=== PATIENT | female | born 1940 | race Caucasian/White ===

== ENCOUNTER 2016-12-25 10:02 | Inpatient (IN) | payer OTHER, MEDICARE ==
[2017-01-07] MEDS ORDERED: ASPI-110 PO (11:43)
[2017-01-07] MEDS ORDERED: MAPA500T13 PO (11:43)
[2017-01-11] MEDS ORDERED: VANCOMYCIN 1000 MG/NS 250 ML (for <70 kg) IV SCH ×2 (06:00)
[2017-01-11] MEDS ORDERED: DEXAMETHASONE SOD PHOS 20 MG/5 ML VIAL IV SCH (06:00)
[2017-01-11] MEDS ORDERED: LACTATED RINGER'S 1000 ML IV PRN (06:00)
[2017-01-11] MEDS ORDERED: ceFAZolin 2 GM PREMIX 50 ML IV SCH (06:00)
[2017-01-11] MEDS ORDERED: POVIDONE IODINE 7.5% SCRUB 118 ML BOTTLE TOPICAL SCH (06:00)
[2017-01-11] MEDS ORDERED: INSULIN HUMAN REGULAR 1,000 UNITS/10 ML VIAL SQ PRN (06:00)
[2017-01-11] MEDS ORDERED: CHLORHEXIDINE GLUCONATE 2 % 1 PACK (2 CLOTHS) TOPICAL PRN (06:00)
[2017-01-11] MEDS ORDERED: METOPROLOL TARTRATE 25 MG TAB PO PRN (06:00)
[2017-01-11] MEDS ORDERED: POVIDONE IODINE 5% (ANTISEPSIS KIT) 4 APPLICATIONS EACH NARE PRN (06:00)
[2017-01-11] MEDS ORDERED: CHLORHEXIDINE GLUCONATE 4% SOLN 120 ML BTL TOPICAL SCH (06:00)
[2017-01-11] MEDS ORDERED: SODIUM CHLORID 0.9% 500 ML IV PRN (06:00)
[2017-01-11 06:01] VITALS: BP 189/92; PULSE 78; RESP 18; TEMP 97.7; O2SAT 97
[2017-01-11] MEDS ORDERED: GENTAMICIN SULFATE 80 MG/2 ML VIAL ONE (06:16)
[2017-01-11] MEDS ORDERED: FAMOTIDINE 20 MG/2 ML VIAL ONE (06:36)
[2017-01-11] MEDS ORDERED: MIDAZOLAM HCL 2 MG/2 ML VIAL ONE (06:37)
[2017-01-11] MEDS ORDERED: HYDR-3288 PO (06:43)
[2017-01-11] MEDS ORDERED: ENOX40P SQ (06:43)
[2017-01-11] MEDS ORDERED: ASPI81CH37 CHEW (06:44)
[2017-01-11] MEDS ORDERED: ALUMINUM/MAGNESIUM/SIMETH 30 ML CUP PO PRN (06:45)
[2017-01-11] MEDS ORDERED: ONDANSETRON HCL 4 MG/2 ML VIAL IVP PRN (06:45)
[2017-01-11] MEDS ORDERED: Post-op Orders (for Pharmacy) MISC XX ONE (06:45)
[2017-01-11] MEDS ORDERED: diphenhydrAMINE HCL 50 MG/ML VIAL IV PRN (06:45)
[2017-01-11] MEDS ORDERED: BISACODYL 10 MG SUPP RECTAL PRN (06:45)
[2017-01-11] MEDS ORDERED: NALOXONE HCL 0.4 MG/ML AMP IV PRN (06:45)
[2017-01-11] MEDS ORDERED: MORPHINE SULFATE 4 MG/ML INJ IV PUSH PRN (06:45)
[2017-01-11] MEDS ORDERED: ZOLPIDEM TARTRATE 5 MG TAB PO PRN (06:45)
[2017-01-11] MEDS ORDERED: SODIUM CHLORIDE 0.9% FLUSH 5 ML FLUSH IVF PRN (06:45)
[2017-01-11] MEDS ORDERED: SODIUM CHLORIDE 0.9% IV SCH (07:00)
[2017-01-11] MEDS ORDERED: TRANEXAMIC ACID IV SCH (07:00)
[2017-01-11] MEDS ORDERED: EXPAREL PERI-ARTICULAR INJECTION (TOTAL VOL. 60 ML) P-ARTICULR SCH ×2 (07:00)
[2017-01-11] MEDS ORDERED: TRANEXAMIC PERI-ARTICULAR 3,000 MG/NS 100 ML P-ARTICULR SCH ×2 (07:00)
[2017-01-11] MEDS ORDERED: DO NOT ADM ANY ANTICOAGULANT DRUGS PRN (09:10)
[2017-01-11] MEDS: SODIUM CHLORIDE 0.9% FLUSH 5 ML FLUSH IVF SCH ×2 (09:12→20:42)
[2017-01-11] MEDS ORDERED: fentaNYL CITRATE 250 MCG/5 ML AMP ONE (09:21)
[2017-01-11] MEDS ORDERED: *ONDANSETRON 4 MG VIAL PERIprocedural Use ONLY ONE (09:45)
[2017-01-11] MEDS: SODIUM CHLOR 0.9% 1000 ML INJ 1,000 ML IV SCH ×3 (09:45→20:42)
[2017-01-11] MEDS ORDERED: *morphine SULFATE 8 MG/ML PERIprocedure ONLY ONE (09:45)
--- NOTE | 2017-01-11 09:59 | RADRPT ---
EXAM DATE/TIME: 01/11/2017 09:21 [facility] COMPARISON: No previous studies available for comparison. INDICATIONS : Post operative left hip. MEDICAL HISTORY : None. SURGICAL HISTORY : None. ENCOUNTER: Initial ACUITY: 1 day PAIN SCORE: 0/10 LOCATION: Left hip. FINDINGS: There is an arthroplasty in place in the left hip. Orthopedic hardware is in excellent position. The alignment is good. No acute fracture or destructive lesion is seen. CONCLUSION: 1. Orthopedic hardware on the left in excellent position. Esteban Carroll MD on January 11, 2017 at 9:56 Board Certified Radiologist. This report was verified electronically.
[2017-01-11 11:24] VITALS: BP 143/67; PULSE 90; RESP 20; TEMP 97; O2SAT 97
[2017-01-11] MEDS: ACETAMINOPHEN/HYDROcodone 325 MG/7.5 MG TAB PO PRN ×3 (12:07→20:41)
[2017-01-11] MEDS ORDERED: PROPOFOL 200 MG/20 ML AMP IV ONE (12:18)
[2017-01-11] MEDS ORDERED: ePHEDrine/NS 25 MG/5 ML SYR IV ONE (12:19)
[2017-01-11] MEDS ORDERED: NEOSTIGMINE 3 MG/3 ML SYR IV ONE (12:19)
[2017-01-11] MEDS ORDERED: ONDANSETRON HCL 4 MG/2 ML VIAL IV ONE (12:21)
[2017-01-11] MEDS ORDERED: LACTATED RINGER'S 1000 ML INJ 1,000 ML IV ONE (12:22)
--- NOTE | 2017-01-11 13:03 | HHI.FF ---
Face to Face Verification Diagnosis: (1) Primary localized osteoarthrosis, pelvic region and thigh Physical Therapy Gait training, Safety evaluation, Transfer training, bed to chair Hip: Total hip, Protocol: Left, Progress to weight bearing Left LE Weight Bearing: WB as tolerated Nursing RN: 3 days/week x 2 weeks Nursing: Wilver teaching, Dressing changes Dressing Changes: Daily dressing change I have seen patient Franko Nation on 01/11/17. My clinical findings support the need for the requested home health care services because: Limited ability to care for self High risk of falls I certify that my clinical findings support that this patient is homebound because: Post-op weakness Unsteady gait/balance William Cabrera Jan 11, 2017 13:03
--- NOTE | 2017-01-11 13:03 | HHI.DCPOC ---
Discharge Care Plan Diagnosis: (1) Primary localized osteoarthrosis, pelvic region and thigh Your Health Problems Are: Difficulty with ADL Goals to Promote Your Health * To prevent worsening of your condition and complications * To maintain your health at the optimal level Directions to Meet Your Goals Take your medications as prescribed Follow your dietary instruction Follow activity as directed Keep your appointments as scheduled Take your immunizations and boosters as scheduled If your symptoms worsen call your PCP, if no PCP go to Urgent Care Center or Emergency Room Smoking is Dangerous to Your Health. Avoid second hand smoke Call the 24-hour hour crisis hotline for domestic abuse at William Cabrera Jan 11, 2017 13:02
--- NOTE | 2017-01-11 13:12 | PD.CONS ---
HPI Service [facility] Consult Requested By Reason for Consult medical management Primary Care Physician No Primary Care Physician Diagnoses: History of Present Illness patient is a 76 y/o female with history of osteoarthritis who underwent left total hip arthroplasty today. at the time of my evaluation she was resting comfortably with no distress. denies any pain at this time. no chest pain, sob, dizziness or nausea.family at the bedside. Review of Systems Constitutional: DENIES: Fever, Weight loss, Chills, Night Sweats Eyes: DENIES: Blurred vision, Diplopia, Vision loss, Double Vision Ears, nose, mouth, throat: DENIES: Tinnitus, Vertigo, Throat pain, Epistaxis Respiratory: DENIES: Apneas, Cough, Snoring, Wheezing, Hemoptysis, Sputum production, Shortness of breath Cardiovascular: DENIES: Chest pain, Palpitations, Syncope, Dyspnea on Exertion , PND, Lower Extremity Edema, Orthopnea, Claudication Gastrointestinal: DENIES: Abdominal pain, Black stools, Bloody stools, Constipation, Diarrhea, Nausea, Vomiting, Difficulty Swallowing, Anorexia Genitourinary: DENIES: Urinary frequency, Urgency, Hematuria, Dysuria Musculoskeletal: DENIES: Joint pain, Muscle aches, Stiffness, Joint Swelling Integumentary: DENIES: Rash Neurologic: DENIES: Abnormal gait, Headache, Localized weakness, Paresthesias, Seizures, Speech Problems, Tremor, Poor Balance Psychiatric: DENIES: Anxiety, Confusion, Mood changes, Depression, Hallucinations, Agitation, Suicidal Ideation, Homicidal Ideation, Delusions Past Family Social History Allergies: Coded Allergies: No Known Allergies (Verified , 01/07/17) Past Medical History osteoarthritis Past Surgical History tubal ligation eye surgery Reported Medications tylenol Active Ordered Medications Current Medications Lactated Ringer's 1,000 ml @ 30 mls/hr Q24H PRN IV SEE LABEL COMMENTS Last administered on 01/11/17t 06:09; Start 01/11/17 at 06:00; Stop 01/14/17 at 05:59 Sodium Chloride (NS 500 ml Inj) 500 ml @ 30 mls/hr [id number] PRN IV SEE LABEL COMMENTS; Start 01/11/17 at 06:00; Stop 01/14/17 at 05:59 Metoprolol Tartrate (Lopressor) 25 mg LAYER OFF PRN PO SEE LABEL COMMENTS; Start 01/11/17 at 06:00; Stop 01/14/17 at 05:59 Povidone Iodine (Betadine 5% Antisepsis Kit) 1 applic LAYER OFF PRN EACH NARE SEE LABEL COMMENTS Last administered on 01/11/17 06:17; Start 01/11/17 at 06:00 ; Stop 01/14/17 at 05:59 Chlorhexidine Gluconate (Chlorhexidine 2% Cloth) 3 pack LAYER OFF PRN TOPICAL SEE LABEL COMMENTS Last administered on 01/11/17 05:40; Start 01/11/17 at 06:00 ; Stop 01/14/17 at 05:59 Insulin Human Regular (NovoLIN R INJ) See Protocol Table ... LAYER OFF PRN SQ SEE PROTOCOL TABLE; Start 01/11/17 at 06:00; Stop 01/14/17 at 05:59 Povidone Iodine (Betadine 7.5% Scrub) 1 applic ONCE TOPICAL Last administered on 01/11/17 06:08; Start 01/11/17 at 06:00; Stop 01/14/17 at 05:59 Chlorhexidine Gluconate 1 applic 1 applic ONCE TOPICAL ; Start 01/11/17 at 06:00 ; Stop 01/14/17 at 05:59 Cefazolin Sodium/ Dextrose 50 ml @ 100 mls/hr LAYER OFF IV Last administered on 01/11/17 06:16; Start 01/11/17 at 06:00; Stop 01/12/17 at 05:59 Vancomycin HCl 1000 mg/Sodium Chloride 250 ml @ 250 mls/hr LAYER OFF IV Last administered on 01/11/17 06:17; Start 01/11/17 at 06:00; Stop 01/12/17 at 05:59 Tranexamic Acid 978 mg/Sodium Chloride 109.78 ml @ 200 mls/ hr ONCE IV Last administered on 01/11/17 07:53; Start 01/11/17 at 07:00; Stop 01/11/17 at 13:00 ; Status DC Bupivacaine Liposome 20 ml/ Sodium Chloride 60 ml @ 120 mls/hr ONCE P-ARTICULR Last administered on 01/11/17 07:52; Start 01/11/17 at 07:00; Stop 01/11/17 at 13:00; Status DC Tranexamic Acid/ Sodium Chloride (Cyklokapron Inj/ NS Inj) 130 ml @ 260 mls/hr ONCE P-ARTICULR Last administered on 01/11/17 07:55; Start 01/11/17 at 07:00; Stop 01/11/17 at 13:00; Status DC Dexamethasone Sodium Phosphate (Decadron Inj) 10 mg LAYER OFF IV Last administered on 01/11/17 06:14; Start 01/11/17 at 06:00; Stop 01/12/17 at 05:59 Gentamicin Sulfate (Gentamicin Inj) 240 mg STK-MED ONCE .ROUTE Last administered on 01/11/17 07:52; Start 01/11/17 at 06:16; Stop 01/11/17 at 06:17 ; Status DC Famotidine (Pepcid Inj) 20 mg STK-MED ONCE .ROUTE ; Start 01/11/17 at 06:36; Stop 01/11/17 at 06:37; Status DC Midazolam HCl 2 mg 2 mg STK-MED ONCE .ROUTE ; Start 01/11/17 at 06:37; Stop at 06:38; Status DC Sodium Chloride (NS 1000 ml Inj) 1,000 ml @ 100 mls/hr Q10H IV Last administered on 01/11/17 09:45; Start 01/11/17 at 06:40 IV Flush (NS Flush) 2 ml UNSCH PRN IVF FLUSH AFTER USING IV ACCESS; Start 01/11 at 06:45 IV Flush 2 ml 2 ml BID IVF Last administered on 01/11/17 09:12; Start at 09:00 Cefazolin Sodium/ Sodium Chloride (Ancef Inj/NS Inj) 100 ml @ 200 mls/hr Q6H IV Last administered on 01/11/17 11:06; Start 01/11/17 at 12:00; Stop at 00:29 Miscellaneous Information (Post-op Orders (for Pharmacy)) STAT ONCE XX ; Start 01/11/17 at 06:45; Stop 01/11/17 at 09:23; Status DC Enoxaparin Sodium (Lovenox Inj) 40 mg Q24H SQ ; Start 01/12/17 at 08:00; Stop at 08:01 Morphine Sulfate (Morphine Inj) 3 mg Q3H PRN IV PUSH 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; Start 01/11/17 at 06:45 Acetaminophen/ Hydrocodone Bitart ([place] 7.5-325 Mg) 1 tab Q4H PRN PO PAIN LESS THAN 5 ON SCALE Last administered on 01/11/17t 12:07; Start 01/11/17 at 06: 45 Acetaminophen/ Hydrocodone Bitart ([place] 7.5-325 Mg) 2 tab Q4H PRN PO PAIN SCALE 5 TO 10; Start 01/11/17 at 06:45 Multivitamins/ Minerals Therapeutic (Theragran M Tab) 1 tab BID PO ; Start 01/12 at 21:00; Stop 03/13/17 at 20:59 Ondansetron HCl (Zofran Inj) 4 mg Q6H PRN IVP NAUSEA OR VOMITING; Start at 06:45 Docusate Sodium (Colace) 100 mg BID PO ; Start 01/12/17 at 21:00 Al Hydrox/Mg Hydrox/Simethicone (Mag-Al Plus Susp Liq) 30 ml Q6H PRN PO INDIGESTION; Start 01/11/17 at 06:45 Zolpidem Tartrate (Ambien) 5 mg HS PRN PO SLEEP; Start 01/11/17 at 06:45 Bisacodyl (Dulcolax Supp) 10 mg DAILY PRN RECTAL CONSTIPATION; Start 01/11/17 at 06:45 Naloxone HCl (Narcan Inj) 0.4 mg UNSCH PRN IV RESPIRATORY RATE LESS THAN 10; Start 01/11/17 at 06:45 Diphenhydramine HCl (Benadryl Inj) 25 mg Q6H PRN IV ITCHING; Start 01/11/17 at 06:45 Miscellaneous Information ALL NURSING DEPARTME... UNSCH PRN .XX SEE LABEL COMMENTS; Start 01/11/17 at 09:10; Stop 01/12/17 at 09:09 Fentanyl Citrate (fentaNYL INJ) 250 mcg STK-MED ONCE .ROUTE ; Start 01/11/17 at 09:21; Stop 01/11/17 at 09:22; Status DC Morphine Sulfate (*morphine INJ PERIprocedure ONLY) 8 mg STK-MED ONCE .ROUTE Last administered on 01/11/17 09:45; Start 01/11/17 at 09:45; Stop 01/11/17 at 09:46; Status DC Ondansetron HCl (*ZOFRAN INJ PERIprocedural ONLY) 4 mg STK-MED ONCE .ROUTE Last administered on 01/11/17t 09:45; Start 01/11/17 at 09:45; Stop 01/11/17 at 09:46; Status DC Social History ex-smoker. Physical Exam Vital Signs Vital Signs Date Time Temp Pulse Resp B/P Pulse Ox O2 Delivery O2 Flow Rate FiO2 01/11/17 11:24 97.0 90 20 143/67 97 01/11/17 11:24 Nasal Cannula 2.00 01/11/17 11:00 88 16 143/60 94 Nasal Cannula 2 01/11/17 10:45 86 16 140/65 98 Nasal Cannula 2 01/11/17 10:30 69 16 147/64 93 Nasal Cannula 1 01/11/17 10:15 65 16 149/67 96 Nasal Cannula 1 01/11/17 10:09 16 01/11/17 10:00 68 14 149/65 96 Nasal Cannula 2 01/11/17 09:45 63 16 141/65 99 Nasal Cannula 2 01/11/17 09:30 66 16 146/62 99 Nasal Cannula 2 01/11/17 09:15 68 16 155/70 98 Nasal Cannula 2 01/11/17 09:12 97.6 66 16 174/77 99 Nasal Cannula 2 01/11/17 06:01 97.7 78 18 189/92 97 Physical Exam GENERAL: This is a well-nourished, well-developed patient, in no apparent distress. SKIN: No rashes, ecchymoses or lesions. Cool and dry. HEAD: Atraumatic. Normocephalic. No temporal or scalp tenderness. EYES: Pupils equal round and reactive. Extraocular motions intact. No scleral icterus. No injection or drainage. ENT: Nose without bleeding, purulent drainage or septal hematoma. Throat without erythema, tonsillar hypertrophy or exudate. Uvula midline. Airway patent. NECK: Trachea midline. No JVD or lymphadenopathy. Supple, nontender, no meningeal signs. CARDIOVASCULAR: Regular rate and rhythm without murmurs, gallops, or rubs. RESPIRATORY: Clear to auscultation. Breath sounds equal bilaterally. No wheezes , rales, or rhonchi. GASTROINTESTINAL: Abdomen soft, non-tender, nondistended. No hepato-splenomegaly , or palpable masses. No guarding. MUSCULOSKELETAL: Extremities without clubbing, cyanosis, or edema. No joint tenderness, effusion, or edema noted. No calf tenderness. Negative Homans sign bilaterally. NEUROLOGICAL: Awake and alert. Cranial nerves II through XII intact. Motor and sensory grossly within normal limits. Five out of 5 muscle strength in all muscle groups. Normal speech. Laboratory Laboratory Tests Test 01/11/17 06:10 Blood Type A POSITIVE Antibody Screen NEGATIVE Blood Bank Comment Imaging Last Impressions Hip and Pelvis X-Ray 01/11/17 0640 Signed Impressions: Service Date/Time: Wednesday, January 11, 2017 09:21 - CONCLUSION: 1. Orthopedic hardware on the left in excellent position. Esteban Carroll MD Assessment and Plan Assessment and Plan A/P - osteoarthritis- s/p left total hip arthroplasty continue with pain control and rehab efforts. management per ortho. -DVT prophylaxis with Lovenox- per ortho thank you for the consult. Discussed Condition With the patient. Javier Miller MD Jan 11, 2017 13:12
[2017-01-11 13:16] VITALS: O2SAT 100
--- NOTE | 2017-01-11 15:03 | RADRPT ---
EXAM DATE/TIME: 01/11/2017 07:12 [facility] COMPARISON: No previous studies available for comparison. INDICATIONS : Left anterior hip replacement. MEDICAL HISTORY : Chronic obstructive pulmonary disease. Osteoarthritis. Smoker. SURGICAL HISTORY : None. ENCOUNTER: Initial ACUITY: 1 day PAIN SCORE: Non-responsive. LOCATION: Left hip. FINDINGS: There is a total hip prosthesis in place. The acetabular component is secured superiorly with two sc rews. The prosthetic components appear well placed. Skin trav are seen. CONCLUSION: Successful placement of a left total hip prosthesis. Lucian Coon MD on January 11, 2017 at 13:45 Board Certified Radiologist. This report was verified electronically.
[2017-01-11 15:52] VITALS: BP 139/69; PULSE 87; RESP 16; TEMP 95.9; O2SAT 98
[2017-01-11 20:13] VITALS: BP 159/70; PULSE 88; RESP 16; TEMP 98.1; O2SAT 98
[2017-01-11] MEDS ORDERED: MAGNESIUM HYDROXIDE SUSP 30 ML CUP PO PRN (23:15)
[2017-01-12] VITALS (8 sets, daily range): BP systolic 126–163; BP diastolic 58–67; PULSE 68–95; RESP 16–18; TEMP 96.2–99.4; O2SAT 94–97
--- NOTE | 2017-01-12 07:03 | MP ---
cc: KWASI MONTENEGRO M.D. DATE OF SURGERY 01/11/2017 PREOPERATIVE DIAGNOSIS Left hip osteoarthritis. POSTOPERATIVE DIAGNOSIS Left hip osteoarthritis. PROCEDURE Left total hip arthroplasty. SURGEON Dr. Kwasi Montenegro STUNNER Thong Cabrera PA-C ANESTHESIA General. ESTIMATED BLOOD LOSS 100 cc. COMPLICATIONS None. IMPLANTS USED DePuy Corail size 10 Press-Fit standard offset femoral stem, size 52 [place] Gription cup, size 36-mm neutral polyethylene highly cross-linked liner, size 36-mm [place] Chrome head, +1.5 neck. JUSTIFICATION This patient is a 76-year-old female with a history of severe end-stage osteoarthritis involving the left hip. She has severe disabling pain with standing, walking ambulation, weightbearing activities, even severe pain at rest. She has failed greater 3 months of nonoperative conservative treatment to include medications, therapy, ambulatory assisted aids, home exercise program, activity modification. The patient is not overweight. X-rays of the left hip revealed severe end-stage osteoarthritis with [id number] joint space narrowing, subchondral sclerosis, subchondral cyst, osteophyte formation and associated deformity. The patient was counseled as to the risks, benefits and alternatives of the above-named surgical procedure. The risks were discussed which include but are not limited to anesthesia, bleeding, infection, damage to nerves, blood vessels, pain, stiffness, fracture-dislocation, leg length discrepancies, blood clots, pulmonary embolism, even . The patient's pain is severe. She favored the benefits over the risks and did wish to proceed with the surgery. PROCEDURE IN DETAIL Written consent was obtained. The patient was identified by name, taken to the operating room, placed supine on the operating room table. General anesthesia was administered as well as 2 grams of IV Ancef and 1 gram of IV vancomycin. The right and left feet were placed in the padded traction boots. The left hip and left lower extremity were prepped and draped using isopropyl alcohol, Hibiclens solution and Chloraprep solution. After an appropriate time-out was performed, a longitudinal incision made over the anterolateral aspect of the left hip. The fascial layer was incised. Dissection was carried over tensor fascia floridalma beneath the rectus femoris to allow exposure of the anterior hip capsule. Capsulotomy incision was performed. An oscillating saw was used to perform a femoral neck cut. The osteoarthritic femoral head and neck component was removed. A 10 blade scalpel was used to excise the labrum. Sequential reaming began at size 45 mm and was carried to size 52 mm. Subsequently a [place] three-hole DePuy Gription cup was implanted in approximately 45 degrees of abduction and 10 degrees of anteversion. Supplementation of fixation was performed with placement of two 6.5-mm screws in the posterior superior quadrant. There is good purchase and fixation with manual testing of the cup after insertion of the screws. A highly cross-linked neutral polyethylene liner was placed. The liner was impacted and placed and tested for stability. Attention was turned to the femur where the leg was externally rotated, extended and adducted. The capsule was released off the inner surface of the greater trochanter to allow for elevation and lateralization of the femur. A box cutting osteotome was used to gain entrance into the intramedullary canal, followed by canal finder and sequential broaching up to size 10. A calcar planer was used to plane the calcar. Trial head and neck combinations were evaluated and final components implanted. With the current implants the leg could achieve external rotation to 70 degrees and extension all the way down to the ground without evidence of anterior instability. No evidence of impingement with range of motion testing. Fluoroscopic imaging showed appropriate implantation of components. The surgical wound was thoroughly irrigated with sterile saline pulse lavage antibiotic impregnated solution. The fascial layer was closed with #1 Vicryl suture, the subcutaneous tissue with 2-0 Vicryl suture. The skin was closed with Dermabond. Sterile dressing applied. The patient tolerated the procedure well with no intraoperative complication noted. Thong Cabrera, physician health care legal assistant certified, was present during the procedure to include patient positioning and the procedure itself. The medical necessity of a physician health care legal assistant was indicated in this case due to the complexity of the procedure. He assisted in appropriate manipulation of the leg and also retraction of muscle, tendon, bone and neurovascular structures. He assisted in preparation of bone and implantation of the prosthetic replacement for purposes of reconstruction. Kwasi Montenegro MD JWM/SSB /8:56 AM /6:53 AM
[2017-01-12 07:20] LABS: HEMATOCRIT 32.9 % (35.0-46.0); MEAN CELL VOLUME 83.1 FL (80.0-100.0); MEAN CORPUSCULAR HEMOGLOBIN 27.4 PG (27.0-34.0); PLATELET COUNT 191 TH/MM3 (150-450); RED BLOOD COUNT 3.96 MIL/MM3 (4.00-5.30); RED CELL DISTRIBUTION WIDTH 13.1 % (11.6-17.2); REVIEW FLAG FINAL; WHITE BLOOD COUNT 9.6 TH/MM3 (4.0-11.0)
[2017-01-12] MEDS: ACETAMINOPHEN/HYDROcodone 325 MG/7.5 MG TAB PO PRN ×3 (07:32→21:02)
[2017-01-12] MEDS: ENOXAPARIN SODIUM 40 MG/0.4 ML SYRINGE SQ SCH (07:32)
--- NOTE | 2017-01-12 08:39 | PD.ORT.PN ---
Subjective Post Op Day #: 1 Subjective Remarks doing well. minimal pain. denies cp and sob. Objective Vitals Vital Signs Date Time Temp Pulse Resp B/P Pulse Ox O2 Delivery O2 Flow Rate FiO2 01/12/17 03:55 98.5 91 16 126/58 95 01/12/17 00:08 99.2 82 16 126/58 96 01/11/17 20:13 98.1 88 16 159/70 98 01/11/17 15:52 95.9 87 16 139/69 98 01/11/17 13:16 100 Nasal Cannula 2.00 01/11/17 11:24 97.0 90 20 143/67 97 01/11/17 11:24 Nasal Cannula 2.00 01/11/17 11:00 88 16 143/60 94 Nasal Cannula 2 01/11/17 10:45 86 16 140/65 98 Nasal Cannula 2 01/11/17 10:30 69 16 147/64 93 Nasal Cannula 1 01/11/17 10:15 65 16 149/67 96 Nasal Cannula 1 01/11/17 10:09 16 01/11/17 10:00 68 14 149/65 96 Nasal Cannula 2 01/11/17 09:45 63 16 141/65 99 Nasal Cannula 2 01/11/17 09:30 66 16 146/62 99 Nasal Cannula 2 01/11/17 09:15 68 16 155/70 98 Nasal Cannula 2 01/11/17 09:12 97.6 66 16 174/77 99 Nasal Cannula 2 I/O 01/11/17 01/11/17 01/11/17 01/12/17 01/12/17 01/12/17 07:00 15:00 23:00 07:00 15:00 23:00 Intake Total 771 ml 1339 ml 360 ml Output Total 575 ml 750 ml 1450 ml Balance 196 ml 589 ml -1090 ml Intake Oral 480 ml 480 ml 360 ml IV Total 291 ml 859 ml Output Urine Total 575 ml 750 ml 1450 ml # Bowel Movements 0 Result Diagram: 01/12/17 0641 Objective Remarks in bed, nad, eating incision no erythema, no drainage neg homans nvi Assessment & Plan Ortho Post Op Day #: 1 Problem List: Assessment and Plan s/p L FRANKLIN wbat daily dressing changes lovenox d/c planning home with [facility] and pt - cleared today after PT if pain under control rx in chart f/up dr. patiño 2 weeks William Cabrera Jan 12, 2017 08:38
[2017-01-12] MEDS ORDERED: WALKER WHEELS/F1 MIS (08:40)
[2017-01-12] MEDS ORDERED: COMMODE 3-IN-11 MIS (08:40)
[2017-01-12] MEDS: SODIUM CHLORIDE 0.9% FLUSH 5 ML FLUSH IVF SCH ×2 (09:00→21:00)
--- NOTE | 2017-01-12 19:15 | HHI.PR ---
Subjective Remarks Follow up for left hip osteoarthritis s/p left FRANKLIN. Patient is doing well. Had some nausea after breakfast. No fever, chills or vomiting. Objective Vitals Vital Signs Date Time Temp Pulse Resp B/P Pulse Ox O2 Delivery O2 Flow Rate FiO2 01/12/17 17:49 94 Nasal Cannula 2.00 01/12/17 16:00 99.4 94 16 148/62 94 01/12/17 12:00 96.2 88 16 163/67 97 01/12/17 09:49 96 Nasal Cannula 2.00 01/12/17 08:00 98.1 68 17 136/63 96 01/12/17 03:55 98.5 91 16 126/58 95 01/12/17 00:08 99.2 82 16 126/58 96 01/11/17 20:13 98.1 88 16 159/70 98 I/O 01/11/17 01/11/17 01/11/17 01/12/17 01/12/17 01/12/17 06:59 14:59 22:59 06:59 14:59 22:59 Intake Total 291 ml 1819 ml 360 ml 720 ml Output Total 150 ml 1175 ml 1450 ml 800 ml Balance 141 ml 644 ml -1090 ml -80 ml Intake Oral 960 ml 360 ml 720 ml IV Total 291 ml 859 ml Output Urine Total 150 ml 1175 ml 1450 ml 800 ml # Voids 1 # Bowel Movements 0 Result Diagram: 01/12/17 0641 Imaging Last Impressions Hip and Pelvis X-Ray 01/11/17 0640 Signed Impressions: Service Date/Time: Wednesday, January 11, 2017 09:21 - CONCLUSION: 1. Orthopedic hardware on the left in excellent position. Esteban Carroll MD Hip X-Ray 01/11/17 0000 Signed Impressions: Service Date/Time: Wednesday, January 11, 2017 07:12 - CONCLUSION: Successful placement of a left total hip prosthesis. Lucian Coon MD Objective Remarks GENERAL: AOX3, NAD. SKIN: Warm and dry. HEAD: Normocephalic. EYES: No scleral icterus. No injection or drainage. NECK: Supple, trachea midline. No JVD or lymphadenopathy. CARDIOVASCULAR: Regular rate and rhythm without murmurs, gallops, or rubs. RESPIRATORY: Breath sounds equal bilaterally. No accessory muscle use. GASTROINTESTINAL: Abdomen soft, non-tender, nondistended. MUSCULOSKELETAL: No cyanosis, or edema. s/p Left Total Hip Arthroplasty. BACK: Nontender without obvious deformity. No CVA tenderness. Procedures 01/11/2017 - Left Total hip arthroplasty. A/P Assessment and Plan Ms. Dia is a pleasant 76 year old female with a history of osteoarthritis who underwent left total hip arthroplasty on 01/11/2017. - Left hip osteoarthritis - s/p Left FRANKLIN - Continue [place] 7.5/325 1-2 tablets for pain PRN. Morphine PRN. - Bowel regimen - Colace, Milk of mag, Dulcolax supp. - Lovenox 40mg Q24hrs X 10 doses starting 01/12/2017. - Multivitamin X 60 days. - Nausea - Continue Zofran. If needed, we can also ad Phenergan or Compazine. Full code. Lovenox. Donnie Rico DO Jan 12, 2017 19:15
[2017-01-12] MEDS: DOCUSATE SODIUM 100 MG CAP PO SCH (21:01)
[2017-01-12] MEDS: MULTIVITAMINS/MINERALS THERAPEUTIC TAB PO SCH (21:01)
[2017-01-12] MEDS: SODIUM CHLOR 0.9% 1000 ML INJ 1,000 ML IV SCH (21:02)
[2017-01-13 00:45] VITALS: BP 131/60; PULSE 94; RESP 18; TEMP 97.8; O2SAT 92
[2017-01-13 04:45] VITALS: BP 144/64; PULSE 97; RESP 17; TEMP 98; O2SAT 93
[2017-01-13] MEDS: ACETAMINOPHEN/HYDROcodone 325 MG/7.5 MG TAB PO PRN ×3 (05:13→15:07)
[2017-01-13 06:16] LABS: HEMATOCRIT 31.3 % (35.0-46.0); MEAN CELL VOLUME 82.1 FL (80.0-100.0); MEAN CORPUSCULAR HEMOGLOBIN 27.7 PG (27.0-34.0); MEAN CORPUSCULAR HGB CONC 33.7 % (32.0-36.0); PLATELET COUNT 199 TH/MM3 (150-450); RED BLOOD COUNT 3.81 MIL/MM3 (4.00-5.30); RED CELL DISTRIBUTION WIDTH 13.3 % (11.6-17.2); REVIEW FLAG FINAL; WHITE BLOOD COUNT 8.2 TH/MM3 (4.0-11.0)
[2017-01-13] MEDS: DOCUSATE SODIUM 100 MG CAP PO SCH (07:49)
[2017-01-13] MEDS: MULTIVITAMINS/MINERALS THERAPEUTIC TAB PO SCH (07:49)
[2017-01-13] MEDS: ENOXAPARIN SODIUM 40 MG/0.4 ML SYRINGE SQ SCH (07:51)
[2017-01-13 08:00] VITALS: BP 119/49; PULSE 86; RESP 18; TEMP 96.8; O2SAT 96
--- NOTE | 2017-01-13 08:05 | PD.ORT.PN ---
Subjective Post Op Day #: 2 Subjective Remarks doing well. nausea yesterday. denies cp and sob. Objective Vitals Vital Signs Date Time Temp Pulse Resp B/P Pulse Ox O2 Delivery O2 Flow Rate FiO2 01/13/17 04:45 98.0 97 17 144/64 93 01/13/17 00:45 97.8 94 18 131/60 92 01/12/17 20:10 99.3 95 18 137/64 94 01/12/17 17:49 94 Nasal Cannula 2.00 01/12/17 16:00 99.4 94 16 148/62 94 01/12/17 12:00 96.2 88 16 163/67 97 01/12/17 09:49 96 Nasal Cannula 2.00 I/O 01/12/17 01/12/17 01/12/17 01/13/17 01/13/17 01/13/17 07:00 15:00 23:00 07:00 15:00 23:00 Intake Total 360 ml 720 ml 700 ml 240 ml Output Total 1450 ml 800 ml Balance -1090 ml -80 ml 700 ml 240 ml Intake Oral 360 ml 720 ml 700 ml 240 ml Output Urine Total 1450 ml 800 ml # Voids 1 3 1 # Bowel Movements 0 0 Result Diagram: 01/13/17 0544 Objective Remarks in chair, nad, dressing c/d/i thigh soft neg homans nvi Assessment & Plan Ortho Post Op Day #: 2 Problem List: Assessment and Plan s/p L FRANKLIN wbat daily dressing changes lovenox d/c planning to snf - cleared when insurance authorizes rx in chart f/up dr. patiño 2 weeks William Cabrera Jan 13, 2017 08:04
[2017-01-13] MEDS: SODIUM CHLORIDE 0.9% FLUSH 5 ML FLUSH IVF SCH (09:00)
--- NOTE | 2017-01-13 09:43 | HHI.PR ---
Subjective Remarks Follow up for left hip osteoarthritis s/p left FRANKLIN. No acute concerns. Denies any chest pain, SOB, fever, chills. No nausea today. Objective Vitals Vital Signs Date Time Temp Pulse Resp B/P Pulse Ox O2 Delivery O2 Flow Rate FiO2 01/13/17 08:00 96.8 86 18 119/49 96 01/13/17 04:45 98.0 97 17 144/64 93 01/13/17 00:45 97.8 94 18 131/60 92 01/12/17 20:10 99.3 95 18 137/64 94 01/12/17 17:49 94 Nasal Cannula 2.00 01/12/17 16:00 99.4 94 16 148/62 94 01/12/17 12:00 96.2 88 16 163/67 97 01/12/17 09:49 96 Nasal Cannula 2.00 I/O 01/12/17 01/12/17 01/12/17 01/13/17 01/13/17 01/13/17 07:00 15:00 23:00 07:00 15:00 23:00 Intake Total 360 ml 720 ml 700 ml 240 ml Output Total 1450 ml 800 ml Balance -1090 ml -80 ml 700 ml 240 ml Intake Oral 360 ml 720 ml 700 ml 240 ml Output Urine Total 1450 ml 800 ml # Voids 1 3 1 # Bowel Movements 0 0 Result Diagram: 01/13/17 0544 Imaging Last Impressions Hip and Pelvis X-Ray 01/11/17 0640 Signed Impressions: Service Date/Time: Wednesday, January 11, 2017 09:21 - CONCLUSION: 1. Orthopedic hardware on the left in excellent position. Esteban Carroll MD Hip X-Ray 01/11/17 0000 Signed Impressions: Service Date/Time: Wednesday, January 11, 2017 07:12 - CONCLUSION: Successful placement of a left total hip prosthesis. Lucian Coon MD Objective Remarks GENERAL: AOX3, NAD. SKIN: Warm and dry. HEAD: Normocephalic. EYES: No scleral icterus. No injection or drainage. NECK: Supple, trachea midline. No JVD or lymphadenopathy. CARDIOVASCULAR: Regular rate and rhythm without murmurs, gallops, or rubs. RESPIRATORY: Breath sounds equal bilaterally. No accessory muscle use. GASTROINTESTINAL: Abdomen soft, non-tender, nondistended. MUSCULOSKELETAL: No cyanosis, or edema. s/p Left Total Hip Arthroplasty. BACK: Nontender without obvious deformity. No CVA tenderness. Procedures 01/11/2017 - Left Total hip arthroplasty. A/P Assessment and Plan Ms. Dia is a pleasant 76 year old female with a history of osteoarthritis who underwent left total hip arthroplasty on 01/11/2017. - Left hip osteoarthritis - s/p Left FRANKLIN - Continue [place] 7.5/325 1-2 tablets for pain PRN. Morphine PRN. - Bowel regimen - Colace, Milk of mag, Dulcolax Supp. - Lovenox 40mg Q24hrs X 10 doses starting 01/12/2017. - Multivitamin X 60 days. - Nausea - Continue Zofran. If needed, we can also ad Phenergan or Compazine. - Patient is hemodynamically stable. Discharge pending to SNF. Full code. Lovenox. Donnie Rico DO Jan 13, 2017 9:43 am
[2017-01-13 11:27] VITALS: BP 139/56; PULSE 98; RESP 18; TEMP 97.3; O2SAT 94
[2017-01-13 12:05] VITALS: O2SAT 93
--- NOTE | 2017-01-16 21:57 | MD ---
cc: KWASI MONTENEGRO M.D. ADMISSION DATE: 01/11/2017 DISCHARGE DATE: 01/13/2017 ADMISSION DIAGNOSIS: Severe degenerative osteoarthritis left hip. DISCHARGE DIAGNOSIS: Severe degenerative osteoarthritis left hip. HISTORY OF PRESENT ILLNESS: Ms. Dia is a 76-year-old female who presented to the [facility] for evaluation by Dr. Kwasi Montenegro regarding her progressive left hip pain. The patient states the pain has been bothering her for numerous years and currently is inhibiting her activities of daily living. She has no alleviating factors although in the past she has tried medications, bracing, physical therapy and home exercises without relief of symptoms. She does have x-ray evidence of severe degenerative osteoarthritis of the left hip. While in the office the patient was counseled as to her diagnosis and treatment options, risks, benefits, indications all were discussed. The patient did elect proceed with surgical intervention to include a left total hip arthroplasty. HOSPITAL COURSE: Date of surgery was 01/11/2017 and was a left total hip arthroplasty anterior approach. Postop after surgery, the patient was admitted to [facility] where she received appropriate medical management, pain control, DVT prophylaxis as well as physical therapy. Once being discharged from the hospital, the patient was cleared to go to a half-way facility as she lives alone. She is in stable condition. She may weight-bear as tolerated. She has received daily dressing changes. The patient has been provided prescriptions for pain control as well as DVT prophylaxis medication. She was also provided a follow-up appointment at approximately two weeks from her operative date. She has asked appropriate questions, which have been answered. The patient is cleared for discharge. Dictated by Thong Cabrera PA-C. MD STEPHON Freeman/ROLANDO /8:23 AM /9:51 PM
== END 2017-01-13 15:12 | DRG 470 ==
LOC: HSDI 01-11 05:34 → N06A 01-11 11:18
PROVIDERS: ADMIT Orthopaedic Surgery Sports Medicine; ATTEND Orthopaedic Surgery Sports Medicine
PROC: 0SRB02A Replacement of Left Hip Joint with Metal on Polyethylene Synthetic Substitute, Uncemented, Open Approach (ICD-10-PCS; principal; 2017-01-11 06:38)
DX: M16.12 Unilateral primary osteoarthritis, left hip (principal); J44.9 Chronic obstructive pulmonary disease, unspecified; E78.5 Hyperlipidemia, unspecified; Z87.891 Personal history of nicotine dependence
CPT/HCPCS: 73502; 76000; 85027; 86850; 86900; 86901; 94150; C1776; C9290; J0690; J1100; J1580; J1650; J2250; J2270; J2405; J2710; J3010; J3370; J7030; J7050; J7120

== ENCOUNTER 2018-04-18 06:51 | Inpatient (IN) ==
[2018-04-18] MEDS ORDERED: Chlorhexidine Gluconate 2% 1 Pack (2 Cloths) TOPICAL ONE (07:27)
[2018-04-18] MEDS ORDERED: Metoprolol Tartrate 25 MG Tablet PO ONE (07:27)
[2018-04-18] MEDS ORDERED: Chlorhexidine 4% Topical 120 APPLIC/120 ML Bottle TOPICAL SCH (07:30)
[2018-04-18] MEDS ORDERED: Sodium Chlor 0.9% Inj 73.07 ML, Ropivacaine 0.5% PF Inj 24.63 ML, Ketorolac Inj 30 MG, ... P-ARTICULR SCH ×5 (07:30)
[2018-04-18] MEDS ORDERED: Dexamethasone Inj 20 MG/5 ML Vial IV.SIG SCH (07:45)
[2018-04-18] MEDS ORDERED: SODIUM CHLOR 0.9% IV.SIG SCH (08:00)
[2018-04-18] MEDS ORDERED: Vancomycin Inj 1,000 MG in Sodium Chlor 0.9% Inj 250 ML IV.SIG SCH (08:00)
[2018-04-18] MEDS ORDERED: ceFAZolin 2 GM Premix Inj 2 GM/50 ML PIGGYBACK IV.SIG SCH (08:00)
[2018-04-18] MEDS ORDERED: Sodium Chlor 0.9% Inj 500 ML IV.SIG SCH (08:00)
[2018-04-18] MEDS ORDERED: TRANEXAMIC ACID IV.SIG SCH (08:00)
[2018-04-18] MEDS ORDERED: Tranexamic Acid Inj 3,000 MG in Sodium Chlor 0.9% Inj 100 ML P-ARTICULR SCH (08:00)
[2018-04-18] MEDS ORDERED: Bupivacaine Liposomal PF 1.3% Inj 20 ML Vial ONE (08:46)
[2018-04-18] MEDS ORDERED: Zolpidem Tartrate 5 MG Tablet PO PRN (09:15)
[2018-04-18] MEDS ORDERED: HYDROmorphone PF Inj 2 MG/ML Vial IV.PUSH PRN (09:15)
[2018-04-18] MEDS ORDERED: Post-op Orders (for Pharmacy) OTHER STA (09:15)
[2018-04-18] MEDS ORDERED: Bisacodyl 10 MG Supp RECTAL PRN (09:15)
[2018-04-18] MEDS ORDERED: HYDROmorphone PF Inj 2 MG/ML Vial ONE (09:55)
[2018-04-18] MEDS ORDERED: Sugammadex Inj 200 MG/2 ML Vial IV.PUSH ONE (09:55)
[2018-04-18] MEDS ORDERED: Ketorolac Inj 30 MG/ML (IVP) Vial IV.PUSH ONE (10:16)
[2018-04-18] MEDS ORDERED: Lidocaine PF 1% Inj 5 ML Syringe INFILTRATN ONE (10:16)
[2018-04-18] MEDS ORDERED: fentaNYL Citrate Inj 100 MCG/2 ML Ampul ONE (12:17)
--- NOTE | 2018-04-18 13:30 | XR ---
EXAM DATE: 04/18/2018 1:26 PM EDT AGE/SEX: 77 years / Female INDICATIONS: Post op right knee CLINICAL DATA: This is the patient's initial encounter. Patient reports that signs and symptoms have been present for 1 day and indicates a pain score of Nonresponsive. MEDICAL/SURGICAL HISTORY: None. . right knee surgery COMPARISON: . FINDINGS: Right knee arthroplasty in place. Arthroplasty components are in anatomic alignment and intact. No si gnificant acute bony fracture. Immediate postsurgical features in the soft tissues. CONCLUSION: 1. Status post right knee arthroplasty in anatomic alignment without acute fracture. Electronically signed by: Bill Parekh MD 04/18/2018 1:28 PM EDT
[2018-04-18] MEDS ORDERED: *morphine SULFATE 4 MG/ML PERIprocedure ONLY ONE (14:17)
--- NOTE | 2018-04-18 14:59 | MP ---
cc: William Kraft MD DATE OF OPERATION: 04/17/2018 DATE OF PROCEDURE: 04/18/2018 PREOPERATIVE DIAGNOSIS: Right knee osteoarthritis. POSTOPERATIVE DIAGNOSIS: Right knee osteoarthritis. PROCEDURE PERFORMED: Right total knee arthroplasty. SURGEON: William Kraft MD MIXER LEVER OPERATOR: AMY Werner. ANESTHESIA: General with femoral nerve block. ESTIMATED BLOOD LOSS: 50 mL TOURNIQUET TIME: 23 minutes at 250 mmHg. COMPLICATIONS: None. IMPLANTS USED: DePuy Attune size 6 narrow posterior stabilized cemented femoral component, size 5 cemented rotating-platform tibia baseplate, size 38 patella, size 5 mm polyethylene tibial insert. INDICATIONS: This patient is a 77-year-old female with a history of severe osteoarthritis on the right knee joint. She has severe disabling pain with standing, walking, ambulation, weightbearing activities and severe pain at rest. The pain does interfere with activities of daily living. She has failed greater than 3 months of conservative treatment to include medication therapy, injections, ambulatory assist aids, home exercise program, activity modification, weight loss. X-ray of the right knee revealed severe osteoarthritis with joint space narrowing, subchondral sclerosis, subchondral cyst, osteophyte formation with deformity and subluxation. The patient was counseled as to the risks, benefits and alternatives to a total knee arthroplasty. The risks were discussed, which include, but are not limited to anesthesia, bleeding, infection, damage to nerves and blood vessels, pain, stiffness, failure of components, blood clots, pulmonary embolism and even . Patient's pain is severe. She agreed with the benefit over the risks. She did wish to proceed with surgery. PROCEDURE IN DETAIL: Written consent was obtained. The patient was identified by name, taken to the operating room and placed supine and general anesthesia was administered, as well as 2 grams of IV Ancef and 1 gram of IV vancomycin. A well-padded tourniquet was placed on the right thigh. The right lower extremity prepped and draped using isopropyl alcohol, Hibiclens solution and ChloraPrep solution. After timeout was performed, an Esmarch bandage was used to exsanguinate the right lower extremity and tourniquet inflated to 250 mmHg. A longitudinal incision was made over the anterior aspect of the right knee. A medial parapatellar arthrotomy was performed. The patella was everted. The patellar resection guide was used to resect 9 mm of the patella and a size 38 mm guide was placed. Three drill holes were placed and a 30 mm patellar trial fit well. Attention turned to the femur where an intramedullary guide laly was placed and distal femoral guide was set to remove 10 mm of distal femur, 5 degrees off the anatomic valgus axis alignment. An oscillating saw was used to perform the distal femoral cut. Attention was turned to the tibia. An extramedullary tibial guide was set to remove 5 mm off the lowest portion of the medial tibial plateau. The tibial guide was pinned in place and tibia cut was performed. A 5 mm spacer block showed full extension. Attention was turned back to the femur where the AP sizing block measured a size 6. The anterior reference 3-degree external rotation guide was used to pin a size [address] The anterior, posterior chamfer cuts were performed. A size 6 PCL box was pinned in place and PCL was approximated with an oscillating saw. The medial and lateral meniscus remnants were removed, as well as bone and soft tissue debris from the posterior portion of the knee. A size 5 tibia base was pinned in place and the tibia was drilled and punched. Trial components were evaluated and the final components were implanted in place. With the current components, the leg could achieve full extension to 0 degrees and flexion to 140. No evidence of tibial liftoff. Varus valgus balance appeared appropriate and symmetric and the patella was noted to track centrally. With the tourniquet deflated, Bovie cautery was used for hemostasis. The knee was thoroughly irrigated with sterile saline, pulse lavage and antibiotic impregnated solution the arthrotomy incision was closed with #1 Vicryl suture, subcuticular 2-0 Vicryl suture. Skin was closed with Dermabond. Sterile dressing applied. The patient tolerated the procedure well with no intraoperative complications noted. Thong Cabrera, Physician Packaging Machine Operator-Certified was present for the entire procedure to include patient positioning and the procedure itself. The medical necessity of the physician medical office assistant was indicated in this case due to the complexity of the procedure. He assisted with appropriate manipulation of the leg and also retraction muscles, tendon, bone and neurovascular structures. He assisted in preparation of bone and also implantation of the prosthetic replacement. MD STEPHON Freeman/demetri , 11:41 AM , 11:49 AM
[2018-04-18] MEDS: ceFAZolin Inj 2,000 MG in Sodium Chlor 0.9% Inj 100 ML IV.SIG SCH (15:36)
--- NOTE | 2018-04-18 16:37 | P.HPIM ---
History of Present Illness Service: [facility] Primary Care Physician: Rodolfo Osuna MD Chief Complaint: knee pain History of Present Illness: This is a 77-year-old Female with no significant PMHx admitted for Right total knee arthroplasty due to Osteoarthritis. Patient reports that she had significant pain that was interfering with her quality of life for the past few months. Patient is being evaluated in the PACU immediately postop, and is doing well. Patient reports that she is not on any routine medications and denies history of WI,CVA, HTN, and Diabetes Mellitus. Patient is a former smoker. No current concerns. - Diagnosis (1) Total knee replacement status (2) Osteoarthritis of right knee Inpatient Certification: I certify that the inpatient services were ordered in accordance with Medicare regulations governing the order. This includes certification that hospital inpatient services are reasonable and necessary and in the case of services not specified as inpatient-only under 42 CFR 419.22(n), that they are appropriately provided as inpatient services in accordance to with the 2-midnight benchmark under 43 CFR 412.3(e) Estimated Total Length of Stay (Days): 2 Plans for Post Hospital Care: Not yet determined Review of Systems All other systems reviewed negative except as stated in HPI PMFSH - Medical / Surgical Hx Neg / Unobtainable Medical Problems Denied: Yes - Medical History Medical History: Medical History (Last Reviewed 04/18/18 @ 16:33 by Paradise Singleton MD) Arthritis Presence of orthopedic joint implant SOB (shortness of breath) on exertion Wears dentures - Surgical History Surgical History: Surgical History (Last Reviewed 04/18/18 @ 16:34 by Paradise Singleton MD) History of left hip replacement H/O tubal ligation History of colon resection Hx of cataract surgery - Family History Family History: Family History (Last Updated 04/18/18 @ 16:34 by Paradise Singleton MD) Other No pertinent family history - Social History I have reviewed the patient's Social History: Yes - Tobacco History Second Hand Smoke Exposure: No Tobacco Use In Past 30 Days: No Smoking Status: Former smoker - Alcohol History How Often Do You Have a Drink Containing Alcohol: Monthly or less - Substance Use History Substance History: No History of Abuse - Travel History Recent Travel in the [place] Within the Last 8 Weeks: No Recent Travel Out of the Country Within the Last 8 Weeks: No Medications and Allergies Active Medications: Active Medications Hydrocodone Bitart/Acetaminophen ([place] 7.5/325) 1 tab PO Q4H PRN PRN Reason: PAIN LESS THAN 5 ON SCALE Hydrocodone Bitart/Acetaminophen ([place] 7.5/325) 2 tab PO Q6H PRN PRN Reason: PAIN SCALE 5 TO 10 Al Hydroxide/Mg Hydroxide (Milk Of Magnesia Liq) 30 ml PO BID PRN PRN Reason: Mild Constipation Aspirin (Aspirin Chew) 81 mg PO BID JAZ[facility] Bisacodyl (Dulcolax Supp) 10 mg RECTAL DAILY PRN PRN Reason: SEVERE CONSITIPATION Chlorhexidine Gluconate (Hibiclens 4% Topical) 1 applicatio TOPICAL ONCE [facility] Stop: 04/22/18 07:29 Last Admin: 04/18/18 08:00 Dose: 1 applicatio Sodium Chloride 73.07 ml/Ropivacaine 24.63 ml/Ketorolac Tromethamine 30 mg/ Epinephrine HCl 0.5 mg/Clonidine HCl 80 mcg 0 ml P-ARTICULR ONCE [facility] Stop: 04/18/18 23:00 Dexamethasone Sodium Phosphate (Decadron Inj) 10 mg IV.SIG CAREER PROFESSIONAL [facility] Stop: 04/21/18 07:44 Last Admin: 04/18/18 08:38 Dose: 10 mg Diphenhydramine HCl (Benadryl) 25 mg PO Q6H PRN PRN Reason: ITCHING Hydromorphone HCl (Dilaudid Pf Inj) 1 mg IV.PUSH Q3H PRN PRN Reason: BREAKTHROUGH PAIN Tranexamic Acid 1,027.5 mg/ (Sodium Chloride) 110.275 mls @ 200 mls/hr IV.SIG ONCE [facility] Stop: 04/19/18 07:59 Last Infusion: 04/18/18 11:04 Dose: Infused Vancomycin HCl 1,000 mg/ (Sodium Chloride) 250 mls @ 250 mls/hr IV.SIG CAREER PROFESSIONAL [facility] Stop: 04/21/18 07:22 Last Infusion: 04/18/18 11:28 Dose: Infused Tranexamic Acid 3,000 mg/ (Sodium Chloride) 130 mls @ 130 mls/hr P-ARTICULR ONCE [facility] Stop: 04/19/18 07:59 Last Admin: 04/18/18 10:59 Dose: 130 mls/hr Cefazolin Sodium 2,000 mg/ (Sodium Chloride) 120 mls @ 240 mls/hr IV.SIG Q6H [facility] Stop: 04/19/18 04:29 Last Admin: 04/18/18 15:36 Dose: 240 mls/hr Lactated Ringer's (Lr 1000 Ml Inj) 1,000 mls @ 80 mls/hr IV.CONT .[id number] [facility] Last Admin: 04/18/18 12:30 Dose: 80 mls/hr Lactulose (Lactulose Liq) 30 ml PO DAILY PRN PRN Reason: SEVERE CONSITIPATION Miscellaneous Information ([facility]) 1 each OTHER UNSCH PRN PRN Reason: SEE LABEL COMMENTS Stop: 04/19/18 13:31 Multivitamins/Minerals (Theragran-M) 1 tab PO BID [facility] Stop: 06/17/18 20:59 Ondansetron HCl (Zofran Inj) 4 mg IV.PUSH Q6H PRN PRN Reason: NAUSEA OR VOMITING Povidone Iodine (Betadine 7.5% Scrub) 1 applicatio TOPICAL ONCE [facility] Stop: 04/22/18 07:59 Senna/Docusate Sodium (Pebbles-Colace) 1 tab PO BID [facility] Sennosides (Senokot) 17.2 mg PO BID PRN PRN Reason: Moderate Constipation Sodium Chloride (Ns Flush) 2 ml IV.FLUSH UNSCH PRN PRN Reason: FLUSH AFTER USING IV ACCESS Sodium Chloride (Ns Flush) 2 ml IV.FLUSH BID [facility] Zolpidem Tartrate (Ambien) 5 mg PO HS PRN PRN Reason: INSOMNIA Allergies Allergy/AdvReac Type Severity Reaction Status Date / Time No Known Allergies Allergy Unverified 04/18/18 08:07 Home Medications Medication Instructions Recorded Confirmed Type acetaminophen [Tylenol Extra 1,000 mg PO Q6H PRN 04/04/18 04/18/18 History Strength] ibuprofen 400 mg PO Q4-6H PRN 04/04/18 04/18/18 History Exam Vital signs: Vital Signs 04/18/18 08:00 04/18/18 08:34 04/18/18 08:40 Temperature 98.0 F Pulse Rate 80 Respiratory Rate 20 Blood Pressure 195/86 H 195/86 H 190/77 H Pulse Oximetry 97 04/18/18 08:56 04/18/18 12:10 04/18/18 12:25 Temperature 97.5 F L Pulse Rate 70 94 H 84 Respiratory Rate 20 20 Blood Pressure 197/98 H 169/72 H Pulse Oximetry 99 99 99 04/18/18 12:45 04/18/18 13:00 04/18/18 14:00 Temperature Pulse Rate 84 79 71 Respiratory Rate 18 20 18 Blood Pressure 176/79 H 172/75 H 145/65 H Pulse Oximetry 98 100 98 04/18/18 14:25 04/18/18 15:00 04/18/18 15:40 Temperature Pulse Rate 73 Respiratory Rate 22 22 20 Blood Pressure 156/72 H Pulse Oximetry 97 04/18/18 16:05 Temperature 97.6 F Pulse Rate 76 Respiratory Rate 18 Blood Pressure 141/66 H Pulse Oximetry 98 Intake & Output 04/17/18 04/18/18 04/18/18 18:59 06:59 18:59 Intake Total 700.275 / 700.275 Output Total 50 / 50 Balance 650.275 / 650.275 Weight 68.5 kg Intake: IV 410.275 / 410.275 Cyklokapron Inj 1,027.5 MG In 110.275 / 110.275 NS Inj 100 ML @ 200 mls/hr IV. SIG ONCE JAZMY[facility] Rx#:[id number] Vancomycin Inj 1,000 MG In NS 250 / 250 Inj 250 ML @ 250 mls/hr IV.SIG CAREER PROFESSIONAL JAZMYNE Rx#:[id number] Ancef 2 GM Premix Inj 2 gm In 50 / 50 50 ml @ 100 mls/hr IV.SIG CAREER PROFESSIONAL JAZMYNE Rx#:[id number] Anesthesia Amount 190 / 190 Other 100 / 100 Output: Estimated Blood Loss 50 / 50 Other: Weight On Admission 68.5 kg Narrative: GENERAL: well nourished female, in NAD, lying comfortably SKIN: Warm and dry. HEENT: Normocephalic. MOM. No scleral icterus. No injection or drainage. Edentulous. NECK: Supple, trachea midline. No JVD or lymphadenopathy. CARDIOVASCULAR: Regular rate and rhythm without murmurs, gallops, or rubs. RESPIRATORY: Breath sounds equal bilaterally. No accessory muscle use. GASTROINTESTINAL: Abdomen soft, non-tender, nondistended. MUSCULOSKELETAL: No cyanosis, or edema. R knee dressing in place, good cap refill with sensation intact to light touch. BACK: Nontender without obvious deformity. No CVA tenderness. Results - Imaging Impressions Knee X-Ray 04/18/18 09:14 CONCLUSION: 1. Status post right knee arthroplasty in anatomic alignment without acute fracture. Caprini VTE Risk Assessment Caprini VTE Risk Assessment: No/Low Risk (score <= 1) Caprini Risk Assessment Model: Point Value = 1 Point Value = 2 Point Value = 3 Point Value = 5 Age 41-60 Minor surgery BMI > 25 kg/m2 Swollen legs Varicose veins or History of unexplained or recurrent spontaneous Oral contraceptives or hormone replacement Sepsis (< 1 month) Serious lung disease, including pneumonia (< 1 month) Abnormal pulmonary function Acute myocardial infarction Congestive heart failure (< 1 month) History of inflammatory bowel disease Medical patient at bed rest Age 61-74 Arthroscopic surgery Major open surgery (> 45 min) Laparoscopic surgery (> 45 min) Malignancy Confined to bed (> 72 hours) Immobilizing plaster cast Central venous access Age >= 75 History of VTE Family history of VTE Factor V Leiden Prothrombin [id number] Lupus anticoagulant Anticardiolipin antibodies Elevated serum homocysteine Heparin-induced thrombocytopenia Other congenital or acquired thrombophilia Stroke (< 1 month) Elective arthroplasty Hip, pelvis, or leg fracture Acute spinal cord injury (< 1 month) Prophylaxis Regimen: Total Risk Factor Score Risk Level Prophylaxis Regimen 0-1 Low Early ambulation 2 Moderate Order ONE of the following: *Sequential Compression Device (SCD) *Heparin 5000 units SQ BID 3-4 Higher Order ONE of the following medications: *Heparin 5000 units SQ TID *Enoxaparin/Lovenox 40 mg SQ daily (WT < 150 kg, CrCl > 30 mL/min) *Enoxaparin/Lovenox 30 mg SQ daily (WT < 150 kg, CrCl > 10-29 mL/min) *Enoxaparin/Lovenox 30 mg SQ BID (WT < 150 kg, CrCl > 30 mL/min) AND/OR *Sequential Compression Device (SCD) 5 or more Highest Order ONE of the following medications: *Heparin 5000 units SQ TID (Preferred with Epidurals) *Enoxaparin/Lovenox 40 mg SQ daily (WT < 150 kg, CrCl > 30 mL/min) *Enoxaparin/Lovenox 30 mg SQ daily (WT < 150 kg, CrCl > 10-29 mL/min) *Enoxaparin/Lovenox 30 mg SQ BID (WT < 150 kg, CrCl > 30 mL/min) AND *Sequential Compression Device (SCD) Assessment and Plan - Assessment (1) Total knee replacement status Code(s): Z96.659 - Presence of unspecified artificial knee joint Status: Acute (2) Osteoarthritis of right knee Code(s): M17.11 - Unilateral primary osteoarthritis, right knee Status: Acute - Plan This is a 77-year-old Female with no significant PMHx admitted for IP mgmt of R knee Osteoarthritis s/p right total knee arthroplasty, POD#0, doing well 1. POST OP CARE -managed by Ortho -on Cefazolin and Vanc per their postop orders -preop labs reviewed and WNL -H&H and BMP ordered in AM per Ortho -splint in place, PT ordered 2. DVT PPX: SCD's 3. Dispo: D/C planning per Ortho reccs and PT evaluation, F/U AM labs Code Status: full Discussed Condition With: patient and RN H&P: Quality - VTE Deep Vein Thrombosis/Pulmonary Embolism Present on Admission: No
[2018-04-18] MEDS: Multivitamin/Minerals Therapeutic Tablet PO SCH (20:06)
[2018-04-18] MEDS: Senna/Docusate Sodium 8.6/50 MG Tablet PO SCH (20:06)
[2018-04-19] MEDS: ceFAZolin Inj 2,000 MG in Sodium Chlor 0.9% Inj 100 ML IV.SIG SCH ×2 (00:01→05:37)
[2018-04-19 05:22] LABS: Hematocrit 32.4 % (35.0-46.0); Hemoglobin 10.6 gm/dL (11.6-15.3)
[2018-04-19 05:45] LABS: Calcium 7.7 mg/dL (8.5-10.1); Carbon Dioxide 26.2 meq/L (21.0-32.0); Potassium 3.8 meq/L (3.5-5.1)
--- NOTE | 2018-04-19 07:17 | P.PN ---
Subjective Interval history: Patient doing well overnight. Patient is tolerating p.o., voiding and stooling well. Patient reports pain well controlled with p.o. meds. Patient desires SNF on discharge to help her with PT and ADL's as needed. No other concerns. Physical Exam Vital signs: Vital Signs 04/18/18 08:00 04/18/18 08:34 04/18/18 08:40 Temperature 98.0 F Pulse Rate 80 Respiratory Rate 20 Blood Pressure 195/86 H 195/86 H 190/77 H Pulse Oximetry 97 04/18/18 08:56 04/18/18 12:10 04/18/18 12:25 Temperature 97.5 F L Pulse Rate 70 94 H 84 Respiratory Rate 20 20 Blood Pressure 197/98 H 169/72 H Pulse Oximetry 99 99 99 04/18/18 12:45 04/18/18 13:00 04/18/18 14:00 Temperature Pulse Rate 84 79 71 Respiratory Rate 18 20 18 Blood Pressure 176/79 H 172/75 H 145/65 H Pulse Oximetry 98 100 98 04/18/18 14:25 04/18/18 15:00 04/18/18 15:40 Temperature Pulse Rate 73 Respiratory Rate 22 22 20 Blood Pressure 156/72 H Pulse Oximetry 97 04/18/18 16:05 04/18/18 17:00 04/18/18 20:00 Temperature 97.6 F 98 F 97.6 F Pulse Rate 76 78 80 Respiratory Rate 18 18 17 Blood Pressure 141/66 H 139/70 137/68 Pulse Oximetry 98 95 94 L 04/19/18 00:00 04/19/18 01:41 04/19/18 04:00 Temperature 97.9 F 98.1 F Pulse Rate 82 75 Respiratory Rate 17 16 17 Blood Pressure 124/58 L 117/53 L Pulse Oximetry 93 L 94 L Intake & Output 04/18/18 04/19/18 04/19/18 18:59 06:59 18:59 Intake Total 750.275 / 750.275 220 / 220 Output Total 50 / 50 Balance 700.275 / 700.275 220 / 220 Weight 68.5 kg 75.1 kg Intake: IV 460.275 / 460.275 220 / 220 Cyklokapron Inj 1,027.5 MG In 110.275 / 110.275 NS Inj 100 ML @ 200 mls/hr IV. SIG ONCE JAZMYNE Rx#:[id number] Vancomycin Inj 1,000 MG In NS 250 / 250 Inj 250 ML @ 250 mls/hr IV.SIG DORMITORY MAID JAZMYNE Rx#:[id number] Ancef 2 GM Premix Inj 2 gm In 50 / 50 50 ml @ 100 mls/hr IV.SIG DORMITORY MAID JAZMYNE Rx#:[id number] Ancef Inj 2,000 MG In NS Inj 20 / 20 220 / 220 100 ML @ 240 mls/hr IV.SIG Q6H JAZMYNE Rx#:[id number] Cyklokapron Inj 3,000 MG In NS 30 / 30 0 / 0 Inj 100 ML @ 130 mls/hr P- ARTICULR ONCE JAZMYNE Rx#:[id number] Anesthesia Amount 190 / 190 Other 100 / 100 Output: Estimated Blood Loss 50 / 50 Other: # Voids 2 Date of Last Bowel Movement 04/17/18 04/17/18 Weight On Admission 68.5 kg Narrative: GENERAL: well nourished female, in NAD, lying comfortably SKIN: Warm and dry. HEENT: Normocephalic. MOM. No scleral icterus. No injection or drainage. Edentulous. NECK: Supple, trachea midline. No JVD or lymphadenopathy. CARDIOVASCULAR: Regular rate and rhythm without murmurs, gallops, or rubs. RESPIRATORY: Breath sounds equal bilaterally. No accessory muscle use. GASTROINTESTINAL: Abdomen soft, non-tender, nondistended. MUSCULOSKELETAL: No cyanosis, or edema. R knee dressing in place, good cap refill with sensation intact to light touch. BACK: Nontender without obvious deformity. No CVA tenderness.i Results - Labs CBC & Chem 7: 04/19/18 04:37 04/19/18 04:37 Laboratory Results - last 24 hr 04/18/18 04/19/18 04/19/18 08:08 04:37 04:37 Hgb 10.6 L Hct 32.4 L Sodium 142 Potassium 3.8 Chloride 105 Carbon Dioxide 26.2 Anion Gap 11 BUN 17 Creatinine 0.74 Estimated GFR 76 L Random Glucose 99 Calcium 7.7 L Blood Type A Positive Antibody Screen Negative - Imaging Impressions Knee X-Ray 04/18/18 09:14 CONCLUSION: 1. Status post right knee arthroplasty in anatomic alignment without acute fracture. Assessment and Plan - Assessment (1) Total knee replacement status Code(s): Z96.659 - Presence of unspecified artificial knee joint Status: Acute (2) Osteoarthritis of right knee Code(s): M17.11 - Unilateral primary osteoarthritis, right knee Status: Acute - Plan This is a 77-year-old Female with no significant PMHx admitted for IP mgmt of R knee Osteoarthritis s/p right total knee arthroplasty, POD#1, doing well 1. POST OP CARE -managed by Ortho -on Cefazolin and Vanc per their postop orders -preop labs reviewed and WNL -splint in place, [place], [id number] done for SNF, case mgmt assisting with placement 2. Anemia -Hgb 10.6, Rx FeSulfate. 3. DVT PPX: SCD's 4. Dispo: D/C planning for SNF, medically stable pending placement Code Status: full Discussed Condition With: patient and case mgmt
--- NOTE | 2018-04-19 08:14 | P.PNOP ---
Subjective Interval history: pain controlled. Physical Exam Vital signs: Vital Signs 04/18/18 08:34 04/18/18 08:40 04/18/18 08:56 Temperature Pulse Rate 70 Respiratory Rate Blood Pressure 195/86 H 190/77 H Pulse Oximetry 99 04/18/18 12:10 04/18/18 12:25 04/18/18 12:45 Temperature 97.5 F L Pulse Rate 94 H 84 84 Respiratory Rate 20 20 18 Blood Pressure 197/98 H 169/72 H 176/79 H Pulse Oximetry 99 99 98 04/18/18 13:00 04/18/18 14:00 04/18/18 14:25 Temperature Pulse Rate 79 71 Respiratory Rate 20 18 22 Blood Pressure 172/75 H 145/65 H Pulse Oximetry 100 98 04/18/18 15:00 04/18/18 15:40 04/18/18 16:05 Temperature 97.6 F Pulse Rate 73 76 Respiratory Rate 22 20 18 Blood Pressure 156/72 H 141/66 H Pulse Oximetry 97 98 04/18/18 17:00 04/18/18 20:00 04/19/18 00:00 Temperature 98 F 97.6 F 97.9 F Pulse Rate 78 80 82 Respiratory Rate 18 17 17 Blood Pressure 139/70 137/68 124/58 L Pulse Oximetry 95 94 L 93 L 04/19/18 01:41 04/19/18 04:00 04/19/18 08:00 Temperature 98.1 F 98.0 F Pulse Rate 75 81 Respiratory Rate 16 17 16 Blood Pressure 117/53 L 135/61 Pulse Oximetry 94 L 93 L Intake & Output 04/18/18 04/19/18 04/19/18 18:59 06:59 18:59 Intake Total 750.275 / 750.275 220 / 220 120 / 120 Output Total 50 / 50 Balance 700.275 / 700.275 220 / 220 120 / 120 Weight 68.5 kg 75.1 kg Intake: IV 460.275 / 460.275 220 / 220 120 / 120 Cyklokapron Inj 1,027.5 MG In 110.275 / 110.275 NS Inj 100 ML @ 200 mls/hr IV. SIG ONCE JAZMYNE Rx#:[id number] Vancomycin Inj 1,000 MG In NS 250 / 250 Inj 250 ML @ 250 mls/hr IV.SIG VIOLIN TEACHER JAZMYNE Rx#:[id number] Ancef 2 GM Premix Inj 2 gm In 50 / 50 50 ml @ 100 mls/hr IV.SIG VIOLIN TEACHER JAZMYNE Rx#:[id number] Ancef Inj 2,000 MG In NS Inj 20 / 20 220 / 220 120 / 120 100 ML @ 240 mls/hr IV.SIG Q6H JAZMYNE Rx#:[id number] Cyklokapron Inj 3,000 MG In NS 30 / 30 0 / 0 Inj 100 ML @ 130 mls/hr P- ARTICULR ONCE JAZMYNE Rx#:[id number] Anesthesia Amount 190 / 190 Other 100 / 100 Output: Estimated Blood Loss 50 / 50 Other: # Voids 2 Date of Last Bowel Movement 04/17/18 04/17/18 Weight On Admission 68.5 kg Narrative: in bed, nad dressing c/d/i neg jorge nvi Results - Labs CBC & Chem 7: 04/19/18 04:37 04/19/18 04:37 Laboratory Results - last 24 hr 04/18/18 04/19/18 04/19/18 08:08 04:37 04:37 Hgb 10.6 L Hct 32.4 L Sodium 142 Potassium 3.8 Chloride 105 Carbon Dioxide 26.2 Anion Gap 11 BUN 17 Creatinine 0.74 Estimated GFR 76 L Random Glucose 99 Calcium 7.7 L Blood Type A Positive Antibody Screen Negative - Imaging Impressions Knee X-Ray 04/18/18 09:14 CONCLUSION: 1. Status post right knee arthroplasty in anatomic alignment without acute fracture. Assessment and Plan - Ortho Post Op Day # 1 - Assessment and Plan s/p R TKA wbat ok to maintain dressing unless saturated asa 81 d/c planning to snf - cleared when authorized by insurance f/up dr. patiño 2 weeks
[2018-04-19] MEDS: Senna/Docusate Sodium 8.6/50 MG Tablet PO SCH ×2 (08:20→22:02)
[2018-04-19] MEDS: Multivitamin/Minerals Therapeutic Tablet PO SCH ×2 (08:20→22:02)
[2018-04-19] MEDS: Ferrous Sulfate 325 MG Tablet PO SCH ×2 (12:23→18:03)
[2018-04-20 06:49] LABS: Hematocrit 31.3 % (35.0-46.0); Hemoglobin 10.6 gm/dL (11.6-15.3); Mean Corpuscular HGB Conc 33.8 % (32.0-36.0); Mean Corpuscular Hemoglobin 28.3 pg (27.0-34.0); Mean Corpuscular Volume 83.7 fL (80.0-100.0); Mean Platelet Volume 8.8 fL (7.0-11.0); Platelet Count 180 th/mm3 (150-450); Red Blood Count 3.74 mil/mm3 (4.00-5.30); Red Cell Distribution Width 14.5 % (11.6-17.2); White Blood Count 6.8 th/mm3 (4.0-11.0)
[2018-04-20 06:56] LABS: Albumin 3.2 g/dL (3.4-5.0); Anion Gap 6 meq/L (5-15); Aspartate Aminotransferase 24 U/L (15-37); Blood Urea Nitrogen 14 mg/dL (7-18); Calcium 8.2 mg/dL (8.5-10.1); Chloride 103 meq/L (98-107); Glomerular Filtration Rate 82 mL/min (>89); Glucose,Random 103 mg/dL (74-106); Potassium 3.7 meq/L (3.5-5.1); Sodium 140 meq/L (136-145)
[2018-04-20 06:57] LABS: Alanine Aminotransferase 22 U/L (10-53)
[2018-04-20 06:59] LABS: Alkaline Phosphatase 67 U/L (45-117); Total Protein 6.6 g/dL (6.4-8.2)
[2018-04-20 08:36] VITALS: PULSE 84
[2018-04-20] MEDS: Multivitamin/Minerals Therapeutic Tablet PO SCH (09:26)
[2018-04-20] MEDS: Senna/Docusate Sodium 8.6/50 MG Tablet PO SCH (09:26)
--- NOTE | 2018-04-20 09:27 | P.PNOP ---
Subjective Interval history: pain under control currently. Physical Exam Vital signs: Vital Signs 04/19/18 12:00 04/19/18 16:00 04/19/18 19:15 Temperature 97.8 F 98.0 F 98.2 F Pulse Rate 88 78 79 Respiratory Rate 18 20 18 Blood Pressure 123/60 115/69 135/64 Pulse Oximetry 93 L 94 L 96 04/19/18 23:43 04/20/18 03:56 04/20/18 08:00 Temperature 98.8 F 98.7 F 98.6 F Pulse Rate 83 88 84 Respiratory Rate 18 17 20 Blood Pressure 142/65 H 140/75 134/61 Pulse Oximetry 97 92 L 90 L Intake & Output 04/19/18 04/20/18 04/20/18 18:59 06:59 18:59 Intake Total 120 / 120 480 / 480 Balance 120 / 120 480 / 480 Weight 64.93 kg Intake: IV 120 / 120 Ancef Inj 2,000 MG In NS Inj 120 / 120 100 ML @ 240 mls/hr IV.SIG Q6H JAZMYNE Rx#:[id number] Oral 480 / 480 Other: # Voids 1 3 Date of Last Bowel Movement 04/17/18 04/17/18 # Bowel Movements 0 Narrative: in bed, nad, using cpm dressing c/d/i neg jorge nvi Results - Labs CBC & Chem 7: 04/20/18 05:20 04/20/18 05:26 Laboratory Results - last 24 hr 04/20/18 04/20/18 05:20 05:26 WBC 6.8 RBC 3.74 L Hgb 10.6 L Hct 31.3 L MCV 83.7 MCH 28.3 MCHC 33.8 RDW 14.5 Plt Count 180 MPV 8.8 Sodium 140 Potassium 3.7 Chloride 103 Carbon Dioxide 31.0 Anion Gap 6 BUN 14 Creatinine 0.69 Estimated GFR 82 L Random Glucose 103 Calcium 8.2 L Total Bilirubin 0.5 AST 24 ALT 22 Alkaline Phosphatase 67 Total Protein 6.6 Albumin 3.2 L Assessment and Plan - Ortho Post Op Day # 2 - Assessment and Plan s/p R TKA wbat ok to maintain dressing unless saturated asa 81 PT d/c planning to snf - cleared when authorized by insurance f/up dr. patiño 2 weeks
[2018-04-20] MEDS: Ferrous Sulfate 325 MG Tablet PO SCH (12:09)
[2018-04-20 12:40] VITALS: RESP 18
--- NOTE | 2018-04-20 13:19 | P.PNIM ---
Subjective Interval history: This is a 77-year-old Female with no significant PMHx admitted for Right total knee arthroplasty due to Osteoarthritis. Patient reports that she had significant pain that was interfering with her quality of life for the past few months. Patient is being evaluated in the PACU immediately postop, and is doing well. Patient reports that she is not on any routine medications and denies history of [place],CVA, HTN, and Diabetes Mellitus. Patient is a former smoker. No current concerns. 04-19 Patient doing well overnight. Patient is tolerating p.o., voiding and stooling well. Patient reports pain well controlled with p.o. meds. Patient desires SNF on discharge to help her with PT and ADL's as needed. No other concerns. Discharge patient to SNF Condition on discharge: Improved Regular Diet as tolerated Ad Zena activity Follow-up with Ortho SCHEDULED 04-20 PATIENT AWAITS [employer] APPROVAL FOR SNF DW RN AND PT AND CM AM LABS IF STILL HERE Physical Exam Vital signs: Vital Signs 04/19/18 16:00 04/19/18 19:15 04/19/18 23:43 Temperature 98.0 F 98.2 F 98.8 F Pulse Rate 78 79 83 Respiratory Rate 20 18 18 Blood Pressure 115/69 135/64 142/65 H Pulse Oximetry 94 L 96 97 04/20/18 03:56 04/20/18 08:00 04/20/18 12:36 Temperature 98.7 F 98.6 F Pulse Rate 88 84 Respiratory Rate 17 20 18 Blood Pressure 140/75 134/61 Pulse Oximetry 92 L 90 L Intake & Output 04/19/18 04/20/18 04/20/18 18:59 06:59 18:59 Intake Total 120 / 120 480 / 480 Balance 120 / 120 480 / 480 Weight 64.93 kg Intake: IV 120 / 120 Ancef Inj 2,000 MG In NS Inj 120 / 120 100 ML @ 240 mls/hr IV.SIG Q6H JAZMYNE Rx#:[id number] Oral 480 / 480 Other: # Voids 1 3 Date of Last Bowel Movement 04/17/18 04/17/18 # Bowel Movements 0 Narrative: GENERAL: well nourished female, in NAD, lying comfortably SKIN: Warm and dry. HEENT: Normocephalic. MOM. No scleral icterus. No injection or drainage. Edentulous. NECK: Supple, trachea midline. No JVD or lymphadenopathy. CARDIOVASCULAR: Regular rate and rhythm without murmurs, gallops, or rubs. RESPIRATORY: Breath sounds equal bilaterally. No accessory muscle use. GASTROINTESTINAL: Abdomen soft, non-tender, nondistended. MUSCULOSKELETAL: No cyanosis, or edema. R knee dressing in place, good cap refill with sensation intact to light touch. BACK: Nontender without obvious deformity. No CVA tenderness. Results - Labs CBC & Chem 7: 04/20/18 05:20 04/20/18 05:26 Laboratory Results - last 24 hr 04/20/18 04/20/18 05:20 05:26 WBC 6.8 RBC 3.74 L Hgb 10.6 L Hct 31.3 L MCV 83.7 MCH 28.3 MCHC 33.8 RDW 14.5 Plt Count 180 MPV 8.8 Sodium 140 Potassium 3.7 Chloride 103 Carbon Dioxide 31.0 Anion Gap 6 BUN 14 Creatinine 0.69 Estimated GFR 82 L Random Glucose 103 Calcium 8.2 L Total Bilirubin 0.5 AST 24 ALT 22 Alkaline Phosphatase 67 Total Protein 6.6 Albumin 3.2 L - Imaging ITS Impressions Knee X-Ray 04/18/18 09:14 CONCLUSION: 1. Status post right knee arthroplasty in anatomic alignment without acute fracture. - Procedures 04/17/2018 DATE OF PROCEDURE: 04/18/2018 PREOPERATIVE DIAGNOSIS: Right knee osteoarthritis. POSTOPERATIVE DIAGNOSIS: Right knee osteoarthritis. PROCEDURE PERFORMED: Right total knee arthroplasty. SURGEON: William Kraft MD ABSORPTION PLANT OPERATOR: AMY Werner. ANESTHESIA: General with femoral nerve block. ESTIMATED BLOOD LOSS: 50 mL TOURNIQUET TIME: 23 minutes at 250 mmHg. COMPLICATIONS: None. IMPLANTS USED: DePuy Attune size 6 narrow posterior stabilized cemented femoral component, size 5 cemented rotating-platform tibia baseplate, size 38 patella, size 5 mm polyethylene tibial insert. INDICATIONS: This patient is a 77-year-old female with a history of severe osteoarthritis on the right knee joint. She has severe disabling pain with standing, walking, ambulation, weightbearing activities and severe pain at rest. The pain does interfere with activities of daily living. She has failed greater than 3 months of conservative treatment to include medication therapy, injections, ambulatory assist aids, home exercise program, activity modification, weight loss. X-ray of the right knee revealed severe osteoarthritis with joint space narrowing, subchondral sclerosis, subchondral cyst, osteophyte formation with deformity and subluxation. The patient was counseled as to the risks, benefits and alternatives to a total knee arthroplasty. The risks were discussed, which include, but are not limited to anesthesia, bleeding, infection, damage to nerves and blood vessels, pain, stiffness, failure of components, blood clots, pulmonary embolism and even . Patient's pain is severe. She agreed with the benefit over the risks. She did wish to proceed with surgery. PROCEDURE IN DETAIL: Written consent was obtained. The patient was identified by name, taken to the operating room and placed supine and general anesthesia was administered, as well as 2 grams of IV Ancef and 1 gram of IV vancomycin. A well-padded tourniquet was placed on the right thigh. The right lower extremity prepped and draped using isopropyl alcohol, Hibiclens solution and ChloraPrep solution. After timeout was performed, an Esmarch bandage was used to exsanguinate the right lower extremity and tourniquet inflated to 250 mmHg. A longitudinal incision was made over the anterior aspect of the right knee. A medial parapatellar arthrotomy was performed. The patella was everted. The patellar resection guide was used to resect 9 mm of the patella and a size 38 mm guide was placed. Three drill holes were placed and a 30 mm patellar trial fit well. Attention turned to the femur where an intramedullary guide laly was placed and distal femoral guide was set to remove 10 mm of distal femur, 5 degrees off the anatomic valgus axis alignment. An oscillating saw was used to perform the distal femoral cut. Attention was turned to the tibia. An extramedullary tibial guide was set to remove 5 mm off the lowest portion of the medial tibial plateau. The tibial guide was pinned in place and tibia cut was performed. A 5 mm spacer block showed full extension. Attention was turned back to the femur where the AP sizing block measured a size 6. The anterior reference 3-degree external rotation guide was used to pin a size [address] The anterior, posterior chamfer cuts were performed. A size 6 PCL box was pinned in place and PCL was approximated with an oscillating saw. The medial and lateral meniscus remnants were removed, as well as bone and soft tissue debris from the posterior portion of the knee. A size 5 tibia base was pinned in place and the tibia was drilled and punched. Trial components were evaluated and the final components were implanted in place. With the current components, the leg could achieve full extension to 0 degrees and flexion to 140. No evidence of tibial liftoff. Varus valgus balance appeared appropriate and symmetric and the patella was noted to track centrally. With the tourniquet deflated, Bovie cautery was used for hemostasis. The knee was thoroughly irrigated with sterile saline, pulse lavage and antibiotic impregnated solution the arthrotomy incision was closed with #1 Vicryl suture, subcuticular 2-0 Vicryl suture. Skin was closed with Dermabond. Sterile dressing applied. The patient tolerated the procedure well with no intraoperative complications noted. Thong Cabrera, Physician Tie Worker-Certified was present for the entire procedure to include patient positioning and the procedure itself. The medical necessity of the physician perioperative assistant was indicated in this case due to the complexity of the procedure. He assisted with appropriate manipulation of the leg and also retraction muscles, tendon, bone and neurovascular structures. He assisted in preparation of bone and also implantation of the prosthetic replacement. William Kraft MD Assessment and Plan - Assessment (1) Total knee replacement status Code(s): Z96.659 - Presence of unspecified artificial knee joint Status: Acute (2) Osteoarthritis of right knee Code(s): M17.11 - Unilateral primary osteoarthritis, right knee Status: Acute - Plan This is a 77-year-old Female with no significant PMHx admitted for IP mgmt of R knee Osteoarthritis s/p right total knee arthroplasty, POD#1, doing well 1. POST OP CARE -managed by Ortho -on Cefazolin and Vanc per their postop orders -preop labs reviewed and WNL -splint in place, PT ordered, [id number] done for SNF, case mgmt assisting with placement 2. Anemia -Hgb 10.6, Rx FeSulfate. 3. DVT PPX: SCD's 4. Dispo: D/C planning for SNF, medically stable pending placement Code Status: FULL CODE Discussed Condition With: RN AND PT AND CM Discharge Planning: DC TO SNF WHEN ACCEPTED
[2018-04-20 15:08] VITALS: BP 162/70; TEMP 98; O2SAT 92
--- NOTE | 2018-04-27 10:26 | MD ---
cc: William Kraft MD DATE OF DISCHARGE: 04/20/2018 ADMITTING DIAGNOSIS: Severe degenerative osteoarthritis, right knee. DISCHARGE DIAGNOSIS: Severe degenerative osteoarthritis, right knee. HISTORY OF PRESENT ILLNESS: Ms. Dia is a 77-year-old female who is a longstanding patient of Dr[facility]. Currently, she is being evaluated and treated for progressive and severe right knee pain. The patient states the pain is a severe and aching sensation aggravated by weightbearing activities. She has no alleviating factors, although in the past she has tried medications, assistive devices, physical therapy, home exercises and corticosteroid injections without long lasting relief of symptoms. She does have x-ray evidence of severe degenerative osteoarthritis of the right knee. While in the office the patient was counseled on her diagnosis and treatment options. Risks, benefits, and indications were all discussed. The patient did elect to proceed with surgical intervention to include a right total knee arthroplasty. DATE OF SURGERY: On 04/18/2018, right total knee arthroplasty. POSTOP: After surgery, the patient was admitted to [facility] where she received appropriate medical management, pain control, DVT prophylaxis, as well as physical therapy. DISCHARGE: Once being discharged from the hospital, the patient is cleared to go to a half-way facility. The patient does live alone. She is in stable condition. She may weight bear as tolerated. She has been instructed on wound care management. She has been provided prescriptions for pain control and DVT prophylaxis medication. She has also been provided a followup appointment in approximately 2 weeks from her date of surgery. The patient has asked appropriate questions, which have been answered. The patient is cleared for discharge. Dictated by AMY Carroll William Kraft MD JWM/demetri , 09:29 AM , 09:34 AM
== END 2018-04-20 15:49 ==
LOC: HSDI 06:51 → N06 16:17
PROVIDERS: ADMIT Orthopaedic Surgery Sports Medicine; ATTEND Orthopaedic Surgery Sports Medicine